=== PATIENT | male | born 1965 | race Caucasian/White ===

== ENCOUNTER → 2020-07-11 | Outpatient (CLI) | payer OTHER ==
[2020-07-11 10:59] LABS: ALBUMIN 3.9 GM/DL (3.2-5.2); ALT/SGPT 41 U/L (12-78); BILIRUBIN,TOTAL 0.5 MG/DL (0.2-1.0); BLOOD UREA NITROGEN 16 MG/DL (7-18); CALCIUM LEVEL 8.7 MG/DL (8.5-10.1); CARBON DIOXIDE LEVEL 28 MEQ/L (21-32); CHLORIDE LEVEL 104 MEQ/L (98-107); CHOLESTEROL LEVEL 254 MG/DL (<200); CHOLESTEROL RISK RATIO 6.864 (<5); FREE T4 0.92 NG/DL (0.76-1.46); GLOMERULAR FILTRATION RATE > 60.0 (>56); GLUCOSE, FASTING 102 MG/DL (70-100); HDL CHOLESTEROL 37 MG/DL (>40); NON-HDL-C 217 MG/DL; POTASSIUM SERUM 4.4 MEQ/L (3.5-5.1); SODIUM LEVEL 136 MEQ/L (136-145); TOTAL PROTEIN 6.7 GM/DL (6.4-8.2); TRIGLYCERIDES LEVEL 472 MG/DL (<150)
== END ==
LOC: M LAB 08:55
PROVIDERS: ATTEND Physician Assistant Medical
DX: E78.2 Mixed hyperlipidemia (principal)

== ENCOUNTER → 2020-09-05 | Outpatient (CLI) | payer OTHER ==
[~2020-09-05] MED LIST: ATOR1TAB21 PO; FLUT11IN INH; LOSA100T5 PO; OMEP-221 PO; VENTAER INH
== END ==
LOC: M LABSMTC 09:54
PROVIDERS: ATTEND Anesthesiology
DX: Z20.828 Contact with and (suspected) exposure to other viral communicable diseases (principal)

== ENCOUNTER 2020-09-10 06:45 | Day surgery (SDC) | payer OTHER ==
[~2020-09-10] VITALS: Ht 177.8 cm; Wt 123.8 kg
[~2020-09-10 06:45] MED LIST changes: +NS 1,000 ML IV ONE
[2020-09-10] MEDS ORDERED: SIMETHICONE 40MG/0.6ML DROPS 30ML As Ordered ONE (06:47)
--- OUTSIDE RECORDS SUMMARY | 2020-09-10 06:50 | CCD | Continuity of Care Document ---
Author Author Barron BRIONES [place] Organization Unknown Address [address] [place] [address] Phone [phone] Care Team Providers Care English Professor Name Role Phone [facility] - Surgery AUTM [phone] Problems Description No Information Available Social History Type Date Description Comments Sex Unknown Smokeless Tobacco 01/2020 vapes 100 hits per d ay ETOH Use Occasionally consumes alcohol Tobacco Use Start: Unknown Patient is a current smoker, smo kes some days smokes when drinking, 1 to 2 x per week, was a 1ppd smoker for 20-25 years, quit 01/2020 Recreational Drug Use Former Drug User cocaine a nd marijuana Smoking Status Reviewed: 07/23/20 Patient is a current smoker, smokes some days smokes when drinking, 1 to 2 x per week, was a 1ppd smoker for 20-25 years, quit 01/2020 Exercise Type/Frequency Exercises sporadically Tattoo/Piercing Tattoo Sun Exposure Minimum amount of sun exposure Sun Exposure Has experienced blistering from sunburns Sun Exposure History of sunburn Sun Exposure Does not use sunscreen avoids chavez n, sits in shade and limits exposure to sun Seat Belt/Car Seat Always uses seat belt Bike Helmet Always Smoke Alarms Yes Smoke Alarms Carbon Monoxide Detector: Yes Allergies, Adverse Reactions, Alerts Active Allergies Reaction Severity Comments Date NKDA 07/09/2020 Bee Sting Difficulty breathing, Difficulty swallowing, Fac ial swelling, Hives 07/09/2020 Medications Active Medications SIG Qnty Indications Ordering Provide r Date Losartan Potassium/Hydrochlorothiazide 100-25mg Tablets take one tablet by mouth every morning for blood pressure 30 tabs I10 Lety Olivera M.D. 07/23/2020 Atorvastatin Calcium 20mg Tablets 1 tab by mouth every day for cholesterol 90tabs E78.2 Lety Olivera M.D. 07/23/2020 Flovent HFA 110mcg/Act Aerosol inhalation one puff twice a day, rinse mouth after use 24gm R06.2 Will Lety hawkins M.D. 07/09/[address] 1 by mouth every day 90caps Lety Olivera M.D. 020 Albuterol Sulfate HFA 108(90Base) mcg/Act Aerosol inhale 1 puff 30 minutes prior to exerci se may repeat every 4 to 6 hours as needed 17units R06.2 Lety Olivera M.D. 020 Sleep Aid 25mg Capsules 1 po at bedtime Unknown Immunizations Description No Information Available Vital Signs Date Vital Result Comment 07/23/2020 2:41pm BP Systolic 203 mmHg BP Diastolic 121 mmHg BP Systolic Recheck 200 mmHg BP Diastolic Recheck 109 mmHg Heart Rate 110 /min Body Temperature 97.2 F Respiratory Rate 17 /min Height 69.0 inches 5'9" Weight 275.38 lb O2 % BldC Oximetry 93 % Peak Expiratory Flow Rate 521 Estimated Peak Flow Rate [place] Body Weight 160 lb BMI (Body Mass Index) 40.7 kg/m2 07/09/2020 9:42am BP Systolic 161 mmHg BP Diastolic 106 mmHg BP Systolic Recheck 157 mmHg BP Diastolic Recheck 102 mmHg Heart Rate 84 /min Body Temperature 97.6 F Respiratory Rate 17 /min Height 69.0 inches 5'9" Weight 271.38 lb O2 % BldC Oximetry 98 % Peak Expiratory Flow Rate 521 Estimated Peak Flow Rate [place] Body Weight 160 lb BMI (Body Mass Index) 40.1 kg/m2 Results Test Acquired Date Facility Test Result H/L Range Note Lipid Panel 07/11/2020 [facility] nter [phone] Triglycerides Level 472 mg/dL High <150 Cholesterol Level 254 mg/dL High <200 HDL Cholesterol 37 mg/dL Low >40 Non-HDL-C 217 mg/dL Normal Cholesterol Risk Ratio 6.864 High <5 Comprehensive Metabolic Profil 07/11/2020 [facility] [phone] Glucose, Fasting 102 mg/dL High 70-100 Blood Urea Nitrogen 16 mg/dL Normal 7-18 Creatinine For GFR 0.90 mg/dL Normal 0.70-1.30 Glomerular Filtration Rate > 60.0 Normal >56 1 Sodium Level 136 mEq/L Normal 136-145 Potassium Serum 4.4 mEq/L Normal 3.5-5.1 Chloride Level 104 mEq/L Normal 98-107 Carbon Dioxide Level 28 mEq/L Normal 21-32 Anion Gap 4 mEq/L Low 8-16 Calcium Level 8.7 mg/dL Normal 8.5-10.1 Ast/Sgot 20 U/L Normal 7-37 Alt/SGPT 41 U/L Normal 12-78 Alkaline Phosphatase 77 U/L Normal 45-117 Bilirubin,Total 0.5 mg/dL Normal 0.2-1.0 Total Protein 6.7 GM/DL Normal 6.4-8.2 Albumin 3.9 GM/DL Normal 3.2-5.2 Albumin/Globulin Ratio 1.4 Normal FT4&TSH Panel 07/11/2020 [facility] nter [phone] Thyroid Stimulating Hormone 1.740 uIU/ML Normal 0. 358-3.740 Free T4 0.92 ng/dL Normal 0.76-1.46 1 Units are mL/min/1.73 m2 Chronic Kidney Disease Staging per NKF: Stage I & II GFR >=60 Normal to Mildly Decreased Stage III GFR 30-59 Moderately Decreased Stage IV GFR 15-29 Severely Decreased Stage V GFR <15 Very Little GFR Left ESRD GFR <15 on [employer] Procedures Date Code Description Status 07/09/2020 61963 Brief Emotional/Beha v Assessment W/ Scoring Doc Per Standard [facility] Completed Medical Devices Description No Information Available Encounters Type Date Location Provider Dx Diagnosis Office Visit 07/23/2020 2:30p Main Office Krissy Briones PA I10 Essential (primary) hypertension E78.2 Mixed hyperlipidemia E66.09 Other obesity due to excess calories F17.210 Nicotine dependence, cigaret severiano, uncomplicated R06.00 Dyspnea, unspecified Z68.41 Body mass index [BMI]40.0-44 .9, adult Office Visit 07/09/2020 9:45a Main Office Krissy Briones PA E78.2 Mixed hyperlipidemia M25.511 Pain in right shoulder K21.9 Gastro-esophageal reflux dis ease without esophagitis R03.0 Elevated blood-pressure read ing, w/o diagnosis of htn R06.2 Wheezing E66.09 Other obesity due to excess calories F17.210 Nicotine dependence, cigaret severiano, uncomplicated Z13.89 Encounter for screening for other disorder Z68.41 Body mass index [BMI]40.0-44 .9, adult Assessments Date Code Description Provider 07/23/2020 I10 Essential hypertension Petrancos ta Krissy [place], PA 07/23/2020 E78.2 Mixed hyperlipidemia Petrancosta , Krissy [place], PA 07/23/2020 E66.09 Other obesity due to excess jason nadege Petrancosta, Krissy [place], PA 07/23/2020 F17.210 Nicotine dependence, cigarettes, uncomplicated Petrancosta, Krissy [place], PA 07/23/2020 R06.00 Dyspnea, unspecified Petrancosta , Krissy [place], PA 07/23/2020 Z68.41 Body mass index [BMI]40.0-44.9, adult Petrancosta Krissy [place], PA 07/09/2020 E78.2 Mixed hyperlipidemia Petrancosta , Krissy [place], PA 07/09/2020 M25.511 Pain in right shoulder Petrancos ta Krissy [place], PA 07/09/2020 K21.9 Gastro-esophageal reflux disease without esophagitis Petrjaradosta, Krissy [place], PA 07/09/2020 R03.0 Elevated blood-press ure reading, without diagnosis of hypertension Jamesancosta, Krissy [place], PA 07/09/2020 R06.2 Wheezing Petrancosta, Sta felicita [place], PA 07/09/2020 E66.09 Other obesity due to excess jason nadege Petrancosta, Krissy [place], PA 07/09/2020 F17.210 Nicotine dependence, cigarettes, uncomplicated Petrancosta, Krissy [place], PA 07/09/2020 Z13.89 Encounter for screening for othe r disorder Joaquim Krissy [place], PA 07/09/2020 Z68.41 Body mass index [BMI]40.0-44.9, adult Krissy Briones PA Plan of Treatment Future Appointment(s):* 09/03/2020 9:00 am - Krissy Briones PA at Main Office 07/23/2020 - Krissy Briones PA* I10 Essential hypertension* New Medication:* Losartan Potassium/Hydrochlorothiazide 100-25 mg - take one tablet by mouth every morning for blood pressure * Comments:* manual BP checked 180/100start losartan/HCTZlong discussion re: weight loss, exercise, smoking cessation * Follow up:* 1 month * E78.2 Mixed hyperlipidemia* New Medication:* Atorvastatin Calcium 20 mg - 1 tab by mouth every day for cholesterol * Comments:* labs reviewed, triglycerides very high likely secondary to alcohol intakestart lipitor * E66.09 Other obesity due to excess calories * F17.210 Nicotine dependence, cigarettes, uncomplicated * R06.00 Dyspnea, unspecified* Comments:* COPD vs. asthma vs deconditioningcontinue flovent, consider PFTs and sleep study at next visit * Z68.41 Body mass index [BMI]40.0-44.9, adult Functional Status Functional Condition Comment Date Status Glasses readers Active Independent with all ADL's Activ e Independent with all IADL's Acti ve Mental Status Mental Condition Comment Date Status None Active Referrals Refer to Reason for Referral Status Appt Date [facility] SCREENING COLONOSCOPY [place] 07/17/[address] [place] [address], [address] [address] [phone]
--- OUTSIDE RECORDS SUMMARY | 2020-09-10 06:50 | CCD | Continuity of Care Document ---
Author Author Barron BRIONES [place] Organization Unknown Address [address] [place] [address] Phone [phone] Care Team Providers Care Examination Proctor Name Role Phone [facility] - Surgery AUTM [phone] Problems Description No Information Available Social History [...] cocaine a nd marijuana Smoking Status Reviewed: 07/09/20 Patient is a current smoker, smokes some [...] SIG Qnty Indications Ordering Provide r Date Flovent HFA 110mcg/Act Aerosol inhalation one puff [...] Available Vital Signs Date Vital Result Comment 07/09/2020 9:42am BP Systolic 161 mmHg BP Diastolic 106 mmHg BP Systolic Recheck 157 mmHg BP Diastolic Recheck 102 mmHg Heart Rate 84 /min Body Temperature 97.6 F Respiratory Rate 17 /min Height 69.0 inches 5'9" Weight 271.38 lb O2 % BldC Oximetry 98 % Peak Expiratory Flow Rate 521 Estimated Peak Flow Rate [place] Body Weight 160 lb BMI (Body Mass Index) 40.1 kg/m2 Results Test Acquired Date Facility Test Result H/L Range Note Lipid Panel 07/11/2020 [facility] nter [phone] Triglycerides Level 472 mg/dL High <150 Cholesterol Level 254 mg/dL High <200 HDL Cholesterol 37 mg/dL Low >40 Non-HDL-C 217 mg/dL Normal Cholesterol Risk Ratio 6.864 High <5 Comprehensive Metabolic Profil 07/11/2020 [facility] [phone] Glucose, Fasting 102 mg/dL High 70-100 Blood [...] Albumin/Globulin Ratio 1.4 Normal FT4&TSH Panel 07/11/2020 [facility] nter [phone] Thyroid Stimulating Hormone 1.740 uIU/ML Normal 0. 358-3.740 Free T4 0.92 ng/dL Normal 0.76-1.46 1 Units are mL/min/1.73 m2 Chronic Kidney Disease Staging per NKF: Stage I & II GFR >=60 Normal to Mildly Decreased Stage III GFR 30-59 Moderately Decreased Stage IV GFR 15-29 Severely Decreased Stage V GFR <15 Very Little GFR Left ESRD GFR <15 on [employer] Procedures Date Code Description Status 07/09/2020 12688 Brief Emotional/Beha v Assessment W/ Scoring Doc Per Standard Inst Completed Medical Devices Description No Information Available Encounters Type Date Location Provider Dx Diagnosis Office Visit 07/09/2020 9:45a Main Office Krissy [...] .9, adult Assessments Date Code Description Provider 07/09/2020 E78.2 Mixed hyperlipidemia Krissy Briones PA 07/09/2020 M25.511 Pain in right shoulder Petrancos Krissy de leon PA 07/09/2020 K21.9 Gastro-esophageal reflux disease without esophagitis Krissy Briones PA 07/09/2020 R03.0 Elevated blood-press ure reading, without diagnosis of hypertension Krissy Briones PA 07/09/2020 R06.2 Wheezing Anamaria Briones cia PA 07/09/2020 E66.09 Other obesity due to excess jason nadege Krissy Briones PA 07/09/2020 F17.210 Nicotine dependence, cigarettes, uncomplicated BenyostaKrissy PA 07/09/2020 Z13.89 Encounter for screening for othe r disorder Krissy Briones PA 07/09/2020 Z68.41 Body mass index [BMI]40.0-44.9, adult Krissy Briones PA Plan of Treatment Future Appointment(s):* 07/23/2020 2:30 pm - Krissy Briones PA at Main Office Functional Status Functional Condition Comment Date Status Glasses readers Active Independent with all ADL's Activ e Independent with all IADL's Acti ve Mental Status Mental Condition Comment Date Status None Active Referrals Refer to Reason for Referral Status Appt Date [facility] SCREENING COLONOSCOPY [place] 07/17/[address] [place] [address], [address] [address] [phone]
--- OUTSIDE RECORDS SUMMARY | 2020-09-10 06:50 | CCD | Continuity of Care Document ---
Author Author Barron BRIONES PA Organization Unknown Address [address] [place] [address] Phone [phone] Care Team Providers Care Hotel Breakfast Attendant Name Role Phone [facility] - Surgery AUTM [phone] Problems Description No Information Available Social History [...] cocaine a nd marijuana Smoking Status Reviewed: 09/03/20 Patient is a current smoker, smokes some [...] SIG Qnty Indications Ordering Provide r Date Hydrocodone-Acetaminophen 5-325mg Tablets 1 tab by mouth every 4 hours as needed for pain 30tabs M54.5 Lety Olivera M.D. 09/03/2020 Losartan Potassium/Hydrochlorothiazide 100-25mg Tablets Take 1 Tablet By Mouth Every Morning For Blood Pressure 30tabs I10 Lety Olivera M.D. 07/23/2020 Atorvastatin Calcium [...] to 6 hours as needed 17units R06.2 Krissy Briones PA 09/2019 Sleep Aid 25mg Capsules 1 po at bedtime Unknown Immunizations Description No Information Available Vital Signs Date Vital Result Comment 09/03/2020 9:07am BP Systolic 142 mmHg BP Diastolic 98 mmHg BP Systolic Recheck 135 mmHg recheck BP Diastolic Recheck 91 mmHg recheck Heart Rate 98 /min Body Temperature 97.7 F Respiratory Rate 18 /min Height 69.0 inches 5'9" Weight 271.00 lb O2 % BldC Oximetry 97 % Peak Expiratory Flow Rate 521 Estimated Peak Flow Rate [place] Body Weight 160 lb BMI (Body Mass Index) 40.0 kg/m2 07/23/2020 2:41pm BP Systolic 203 mmHg BP Diastolic 121 mmHg BP Systolic Recheck 200 mmHg BP Diastolic Recheck 109 mmHg Heart Rate 110 /min Body Temperature 97.2 F Respiratory Rate 17 /min Height 69.0 inches 5'9" Weight 275.38 lb O2 % BldC Oximetry 93 % Peak Expiratory Flow Rate 521 Estimated Peak Flow Rate [place] Body Weight 160 lb BMI (Body Mass Index) 40.7 kg/m2 Results Test Acquired Date Facility Test Result H/L Range Note Lipid Panel 07/11/2020 [facility] nter [phone] Triglycerides Level 472 mg/dL High <150 Cholesterol Level 254 mg/dL High <200 HDL Cholesterol 37 mg/dL Low >40 Non-HDL-C 217 mg/dL Normal Cholesterol Risk Ratio 6.864 High <5 Comprehensive Metabolic Profil 07/11/2020 [facility] [phone] Glucose, Fasting 102 mg/dL High 70-100 Blood [...] Albumin/Globulin Ratio 1.4 Normal FT4&TSH Panel 07/11/2020 [facility] nter [phone] Thyroid Stimulating Hormone 1.740 uIU/ML Normal 0. 358-3.740 Free T4 0.92 ng/dL Normal 0.76-1.46 1 Units are mL/min/1.73 m2 Chronic Kidney Disease Staging per NKF: Stage I & II GFR >=60 Normal to Mildly Decreased Stage III GFR 30-59 Moderately Decreased Stage IV GFR 15-29 Severely Decreased Stage V GFR <15 Very Little GFR Left ESRD GFR <15 on [employer] Procedures Date Code Description Status 07/09/2020 32552 Brief Emotional/Beha v Assessment W/ Scoring Doc Per Standard Inst Completed Medical Devices Description No Information Available Encounters Type Date Location Provider Dx Diagnosis Office Visit 09/03/2020 9:00a Main Office Krissy Briones PA I10 Essential (primary) hypertension E78.2 Mixed hyperlipidemia M54.5 Low back pain Office Visit 07/23/2020 2:30p Main Office Krissy Briones PA I10 Essential (primary) hypertension E78.2 Mixed hyperlipidemia E66.09 Other obesity due to excess calories F17.210 Nicotine dependence, cigaret severiano, uncomplicated R06.00 Dyspnea, unspecified Z68.41 Body mass index [BMI]40.0-44 .9, adult Office Visit 07/09/2020 9:45a Main Office PetrjaradostKrissy carey, PA E78.2 Mixed hyperlipidemia M25.511 Pain in right shoulder K21.9 Gastro-esophageal reflux dis ease without esophagitis R03.0 Elevated blood-pressure read ing, w/o diagnosis of htn R06.2 Wheezing E66.09 Other obesity due to excess calories F17.210 Nicotine dependence, cigaret severiano, uncomplicated Z13.89 Encounter for screening for other disorder Z68.41 Body mass index [BMI]40.0-44 .9, adult Assessments Date Code Description Provider 09/03/2020 I10 Essential hypertension Petrancos ta, Krissy [place], PA 09/03/2020 E78.2 Mixed hyperlipidemia Petrancosta , Krissy [place], PA 09/03/2020 M54.5 Low back pain Petrancosta Sta felicita [place], PA 07/23/2020 I10 Essential hypertension Petrancos ta, Krissy [place], PA 07/23/2020 E78.2 Mixed hyperlipidemia Petrancosta , Krissy [place], PA 07/23/2020 E66.09 Other obesity due to excess jason nadege Petrancosta, Krissy [place], PA 07/23/2020 F17.210 Nicotine dependence, cigarettes, uncomplicated Petrancosta, Krissy [place], PA 07/23/2020 R06.00 Dyspnea, unspecified Petrancosta , Krissy [place], PA 07/23/2020 Z68.41 Body mass index [BMI]40.0-44.9, adult Petrancosta, Krissy [place], PA 07/09/2020 E78.2 Mixed hyperlipidemia Petrancosta , Krissy [place], PA 07/09/2020 M25.511 Pain in right shoulder Petrancos ta, Krissy [place], PA 07/09/2020 K21.9 Gastro-esophageal reflux disease without esophagitis Petrancosta, Krissy [place], PA 07/09/2020 R03.0 Elevated blood-press ure reading, without diagnosis of hypertension Petrancosta, Krissy [place], PA 07/09/2020 R06.2 Wheezing Anamaria Briones cia, PA 07/09/2020 E66.09 Other obesity due to excess jason nadege Krissy Briones PA 07/09/2020 F17.210 Nicotine dependence, cigarettes, uncomplicated Krissy Briones PA 07/09/2020 Z13.89 Encounter for screening for othe r disorder Krissy Briones PA 07/09/2020 Z68.41 Body mass index [BMI]40.0-44.9, adult Krissy Briones PA Plan of Treatment Future Appointment(s):* 11/05/2020 8:45 am - Krissy Briones PA at Main Office Functional Status Functional Condition Comment Date Status Glasses readers Active Independent with all ADL's Activ e Independent with all IADL's Acti ve Mental Status Mental Condition Comment Date Status None Active Referrals Refer to Reason for Referral Status Appt Date [facility] SCREENING COLONOSCOPY Closed 07/17/2020 [address] [facility], [address] [place] [address] [phone]
--- OUTSIDE RECORDS SUMMARY | 2020-09-10 06:50 | CCD | Continuity of Care Document ---
Author Author Barron BRIONES [place] Organization Unknown Address [address] [place] [address] Phone [phone] Care Team Providers Care General Accounting Manager Name Role Phone [facility] - Surgery AUTM [phone] Problems Description No Information Available Social History [...] Flow Rate 521 Estimated Peak Flow Rate [place] Body Weight 160 lb BMI (Body Mass Index) 40.1 kg/m2 Procedures Date Code Description Status 07/09/2020 53789 Brief Emotional/Beha v Assessment W/ Scoring Doc Per Standard Inst Completed Medical Devices Description No Information Available Encounters Type Date Location Provider Dx Diagnosis Office Visit 07/09/2020 9:45a Main Office Krissy Brioens PA E78.2 Mixed hyperlipidemia M25.511 Pain in [...] PA 07/09/2020 M25.511 Pain in right shoulder Jamesancos Krissy de leon PA 07/09/2020 K21.9 Gastro-esophageal reflux disease without esophagitis Krissy Briones PA 07/09/2020 R03.0 Elevated blood-press ure reading, without diagnosis of hypertension Krissy Briones PA 07/09/2020 R06.2 Wheezing Anamaria Briones cia, [...] to Reason for Referral Status Appt Date [facility] SCREENING COLONOSCOPY [place] 07/17/[address] [place] [address], [address] [address] [phone]
--- OUTSIDE RECORDS SUMMARY | 2020-09-10 06:50 | CCD | Continuity of Care Document ---
Author Author Barron [facility] Organization Unknown Address [address] [place] [address], [address] [place] [address] Phone [phone] Care Team Providers Care Ripening Room Operator Name Role Phone Krissy March AUTM [phone] Problems Active Problems Provider Date Essential hypertension Jose Lane NP Onset: 07/17/2020 Social History Type Date Description Comments Sex Unknown ETOH Use 6 A Week Recreational Drug Use Denies Drug Use Tobacco Use Start: 08/08/94 Patient is a current smoker, smo kes every day 1 PPD Allergies, Adverse Reactions, Alerts Active Allergies Reaction Severity Comments Date Bee Sting SWELLING, HIVES 07/17/2020 Medications Active Medications SIG Qnty Indications Ordering Provide r Date Flovent Diskus 100mcg/Blist Aeroso l 1 puff twice a day Unknown Omeprazole 40mg Capsules DR 1 by mouth every day Unknown Ventolin HFA 108(90Base) mcg/Act A erosol 1 inhalation qd Unknown Immunizations Description No Information Available Vital Signs Date Vital Result Comment 07/17/2020 11:10am BP Systolic 196 mmHg BP Diastolic 112 mmHg Height 70 inches 5'10" Weight 273.25 lb BMI (Body Mass Index) 39.2 kg/m2 [place] Body Weight 166 lb Weight 123.946 kg BSA (Body Surface Area) 2.38 m2 Results Description No Information Available Procedures Description No Information Available Medical Devices Description No Information Available Encounters Description No Information Available Assessments Description No Information Available Plan of Treatment No Information Available Functional Status Description No Information Available Mental Status Description No Information Available Referrals Refer to Reason for Referral Status Appt Date Cecil Nash D.O. COLONOSCOPY Scheduled 07/17/[address] [place] [address] [phone]
--- OUTSIDE RECORDS SUMMARY | 2020-09-10 06:50 | CCD | Continuity of Care Document ---
Author Author Barron BRIONES SC Organization Unknown Address [address] [place] [address] Phone [phone] Care Team Providers Care Facilities Coordinator Name Role Phone [facility] - Surgery AUTM [phone] Problems Description No Information Available Social History [...] Flow Rate 521 Estimated Peak Flow Rate [place] Body Weight 160 lb BMI (Body Mass [...] Flow Rate 521 Estimated Peak Flow Rate [place] Body Weight 160 lb BMI (Body Mass Index) 40.1 kg/m2 Results Test Acquired Date Facility Test Result H/L Range Note Lipid Panel 07/11/2020 [facility] nter [phone] Triglycerides Level 472 mg/dL High <150 Cholesterol Level 254 mg/dL High <200 HDL Cholesterol 37 mg/dL Low >40 Non-HDL-C 217 mg/dL Normal Cholesterol Risk Ratio 6.864 High <5 Comprehensive Metabolic Profil 07/11/2020 [facility] [phone] Glucose, Fasting 102 mg/dL High 70-100 Blood [...] Albumin/Globulin Ratio 1.4 Normal FT4&TSH Panel 07/11/2020 [facility] nter [phone] Thyroid Stimulating Hormone 1.740 uIU/ML Normal 0. 358-3.740 Free T4 0.92 ng/dL Normal 0.76-1.46 1 Units are mL/min/1.73 m2 Chronic Kidney Disease Staging per NKF: Stage I & II GFR >=60 Normal to Mildly Decreased Stage III GFR 30-59 Moderately Decreased Stage IV GFR 15-29 Severely Decreased Stage V GFR <15 Very Little GFR Left ESRD GFR <15 on QUILL LAYER Procedures Date Code Description Status 07/09/2020 86026 Brief Emotional/Beha v Assessment W/ Scoring Doc Per Standard [facility] Completed Medical Devices Description No [...] Code Description Provider 07/23/2020 I10 Essential hypertension Krissy Montejo PA 07/23/2020 E78.2 Mixed hyperlipidemia Krissy Briones PA 07/23/2020 E66.09 Other obesity due to excess jason nadege Krissy Briones PA 07/23/2020 F17.210 Nicotine dependence, cigarettes, uncomplicated Krissy Briones PA 07/23/2020 R06.00 Dyspnea, unspecified Krissy Briones PA 07/23/2020 Z68.41 Body mass index [BMI]40.0-44.9, adult Krissy Briones PA 07/09/2020 E78.2 Mixed hyperlipidemia Krissy Briones PA 07/09/2020 M25.511 Pain in right shoulder Krissy Montejo PA 07/09/2020 K21.9 Gastro-esophageal reflux disease without [...] adult Krissy Briones PA Plan of Treatment 07/23/2020 - Krissy Briones PA* I10 Essential hypertension* New Medication:* Losartan Potassium/Hydrochlorothiazide 100-25 mg - take one tablet by mouth every morning for blood pressure * Follow up:* 1 month * E78.2 Mixed hyperlipidemia* New Medication:* Atorvastatin Calcium 20 mg - 1 tab by mouth every day for cholesterol * E66.09 Other obesity due to excess calories * F17.210 Nicotine dependence, cigarettes, uncomplicated * R06.00 Dyspnea, unspecified * Z68.41 Body mass index [BMI]40.0-44.9, adult Functional Status Functional Condition Comment Date Status Glasses readers Active Independent with all ADL's Activ e Independent with all IADL's Acti ve Mental Status Mental Condition Comment Date Status None Active Referrals Refer to Reason for Referral Status Appt Date [facility] SCREENING COLONOSCOPY [place] 07/17/[address] [place] [address], [address] [place] [phone]
--- OUTSIDE RECORDS SUMMARY | 2020-09-10 06:50 | CCD ---
Author Author [facility] Organization [facility] Address Unknown Phone Unavailable Care Team Providers Care Fullerette Name Role Phone Joaquim Lafourche Krissy PA-C Unavailable Unavailabl e Petrancosta, Lafourche Krissy PA-C Unavailable Unavailabl e Petrancosta, Lafourche Krissy PA-C Unavailable Unavailabl e Petrancosta, Lafourche Krissy PA-C Unavailable Unavailabl e Petrancosta, Lafourche Krissy PA-C Unavailable Unavailabl e Petrancosta, Lafourche Krissy PA-C Unavailable Unavailabl e Petrancosta, Lafourche Krissy PA-C Unavailable Unavailabl e Petrancosta, Lafourche Krissy PA-C Unavailable Unavailabl e Petrancosta, Lafourche Krissy PA-C Unavailable Unavailabl e Petrancosta, Lafourche Krissy PA-C Unavailable Unavailabl e Petrancosta, Lafourche Krissy PA-C Unavailable Unavailabl e Petrancosta, Lafourche Krissy PA-C Unavailable Unavailabl e Petrancosta, Lafourche Krissy PA-C Unavailable Unavailabl e Petrancosta, Lafourche Krissy PA-C Unavailable Unavailabl e Petrancosta, Lafourche Krissy PA-C Unavailable Unavailabl e Petrancosta, Lafourche Krissy PA-C Unavailable Unavailabl e Petrancosta, Lafourche Krissy PA-C Unavailable Unavailabl e Petrancosta, Lafourche Krissy PA-C Unavailable Unavailabl e Petrancosta, Lafourche Krissy PA-C Unavailable Unavailabl e Petrancosta, Sid Krissy PA-C Unavailable Unavailabl e Petrancosta, Sid Krissy PA-C Unavailable Unavailabl e Petrancosta, Sid Krissy PA-C Unavailable Unavailabl e Petrancosta, Sid Krissy PA-C Unavailable Unavailabl e Mendez, Tianna SUPERVISOR BROADLOOM Unavailable Unavailable Mendez, Tianna SUPERVISOR BROADLOOM Unavailable Unavailable Mendez, Tianna SUPERVISOR BROADLOOM Unavailable Unavailable Mendez, Tianna SUPERVISOR BROADLOOM Unavailable Unavailable Mendez, Tianna SUPERVISOR BROADLOOM Unavailable Unavailable Mendez, Tianna SUPERVISOR BROADLOOM Unavailable Unavailable Mendez, Tianna SUPERVISOR BROADLOOM Unavailable Unavailable Mendez, Tianna SUPERVISOR BROADLOOM Unavailable Unavailable Mendez, Tianna SUPERVISOR BROADLOOM Unavailable Unavailable Mendez, Tianna SUPERVISOR BROADLOOM Unavailable Unavailable Mendez, Tianna SUPERVISOR BROADLOOM Unavailable Unavailable Re-disclosure Warning The records that you are about to access may contain information from federally-assisted alcohol or drug abuse programs. If such information is present, then the following federally mandated warning applies: This information has been disclosed to you from records protected by federal confidentiality rules (42 CFR part 2). The federal rules prohibit you from making any further disclosure of this information unless further disclosure is expressly permitted by the written consent of the person to whom it pertains or as otherwise permitted by 42 CFR part 2. A general authorization for the release of medical or other information is NOT sufficient for this purpose. The Federal rules restrict any use of the information to criminally investigate or prosecute any alcohol or drug abuse patient.The records that you are about to access may contain highly sensitive health information, the redisclosure of which is protected by Article 27-F of the [facility] Public Health law. If you continue you may have access to information: Regarding HIV / AIDS; Provided by facilities licensed or operated by the [facility] Office of Mental Health; or Provided by the [facility] Office for People With Developmental Disabilities. If such information is present, then the following [facility] mandated warning applies: This information has been disclosed to you from confidential records which are protected by state law. State law prohibits you from making any further disclosure of this information without the specific written consent of the person to whom it pertains, or as otherwise permitted by law. Any unauthorized further disclosure in violation of state law may result in a fine or nursing home sentence or both. A general authorization for the release of medical or other information is NOT sufficient authorization for further disc losure. Family History Family Member Name Family Member Gender Family Member Status Date o f Status Description Data Source(s) Unknown Unknown Problem [facility] ([facility], [facility]) Encounters Encounter Providers Location Date Indications Data Source(s ) Outpatient Attender: Krissy March PA-C Main Office 09/03/2020 08:00:00 AM EST [facility] ([facility] Outpatient Attender: Krissy March PA-C Main Office 07/23/2020 01:30:00 PM EST [facility] ([facility] Outpatient Attender: Krissy March PA-C Main Office 07/09/2020 08:45:00 AM EST [facility] ([facility] Outpatient Attender: Tianna kim 01/19/2020 10:00:00 AM EDT [facility] ([facility] [place] [facility]) Medications Medication Brand Name Start Date Product Form Dose Route Admi nistrative Instructions Pharmacy Instructions Status Indications Reaction Description Data Source(s) Acetaminophen 325 MG / Hydrocodone Bitartrate 5 MG Ora l Tablet Hydrocodone-Acetaminophen 09/03/2020 12:00:00 AM EST ORAL active [facility] ([facility] atorvastatin 20 MG Oral Tablet Atorvastatin Calcium 07/23/2020 1 2:00:00 AM EST ORAL active [facility] ( [facility] Hydrochlorothiazide 25 MG / Losartan Potassium 100 MG Oral Tablet Losartan Potassium/Hydrochlorothiazide 07/23/2020 12:00:00 AM EST active [facility] ([facility] 120 ACTUAT Fluticasone propionate 0.11 MG/ACTUAT Meter ed Dose Inhaler [Flovent] Flovent HFA 07/09/2020 12:00:00 AM EST RESPIRATORY activ e [facility] ([facility] Omeprazole 40 MG Delayed Release Oral Capsule Omeprazole 07/09/2020 12:00:00 AM EST ORAL active [facility] ([facility] 60 ACTUAT Albuterol 0.09 MG/ACTUAT Metered Dose Inhaler Albu terol Sulfate HFA 07/09/2020 12:00:00 AM EST RESPIRATORY active [facility] ([facility] Nystatin 643550 UNT/ML Oral Suspension Nystatin 01/19/2020 12:00:00 AM EDT ORAL active [facility] ([facility]) Amoxicillin 875 MG / Clavulanate 125 MG Oral Tablet Am oxicillin/Clavulanate Potassium 01/19/2020 12:00:00 AM EDT ORAL active [facility] ([facility]) Ibuprofen 800 MG Oral Tablet Ibuprofen 01/19/2020 12:00:00 AM EDT ORAL active [facility] ([facility]) 875-125 mg 01/19/2020 12:00:00 AM EDT tablet 20 TAKE ONE TABLET BY MOUTH TWICE A DAY FOR 10 DAYS TAKE ONE TABLET BY MOUTH TWICE A DAY FOR 10 DAYS SOLD: 01/19/2020 [facility] 100,000 unit/mL 01/19/2020 12:00:00 AM EDT suspension [address] 1ML EACH SIDE OF MOUTH 4 TIMES A DAY USE [id number] AFTER SYMPTOMS RESOLVE PLACE 1ML EACH SIDE OF MOUTH 4 TIMES A DAY USE [id number] AFTER SYMPTOMS RESOLVE SOLD: 01/19/2020 [facility] Insurance Providers Payer name Policy type / Coverage type Policy ID Covered constitution party ID Covered constitution party's relationship to ramirez Policy Ramirez Plan Information [employer] [id number] SP [id number] [employer] [id number] SP [id number] [facility] [id number] SP [id number] [facility] O [id number] S [id number] [facility] ALLSAV O [id number] S [id number] [facility] ALLSAV O [id number] S [id number] [facility] [place] O [id number] S [id number] [employer] [id number] SP [id number] [facility] [place] [id number] SP [id number] Problems, Conditions, and Diagnoses Code Display Name Description Problem Type Effective Dates Data Source(s) 86648547 Essential hypertension Essential hypertension Problem 07/17/2020 12:00:00 AM EST [facility] ([facility], ) Surgeries/Procedures Procedure Description Date Indications Data Source(s) Brief Emotional/Behav Assessment W/ Scoring Doc Per Standard Inst 07/09/2020 12:00:00 AM EST [facility] ([facility] Results ID Date Data Source [id number] 09/05/2020 10:00:00 AM EST [facility] Name Value Range Interpretation Code Description Data Chen rce(s) Supporting Document(s) SARS coronavirus 2 RNA Not Detected [facility] [place] This lab was ordered by [facility] and reported by [facility]. ID Date Data Source [id number] 07/17/2020 12:00:00 AM EST [facility] Krissy March Rpa, C Patient Name:LIZET [id number] Date of : 1965[place] [address] Date of Exam: 07/17/2020#: Fax: [phone] EXAM: CHEST (2 VIEW) X-RAYCLINICAL INFORMATION: Dyspnea.Two views.Comparison 03/29/2014.The superior mediastinal structures are midline. The heart is notenlarged. The diaphragmatic surfaces of the lungs are regular and thecostophrenic angles are clear. The pulmonary reed are clear. Thevisualized osseous structures are intact.There are mild degenerative changes of the spine.IMPRESSION:There is no acute cardiopulmonary disease.PRIYANKA Levy/Arturo salinas for referring DENAE AMBROCIO to our office. Electronically Signed - ASA ALEXANDER MD 07/17/20 16:45 Name Value Range Interpretation Code Description Data Chen rce(s) Supporting Document(s) ID Date Data Source [id number] 07/11/2020 09:17:00 AM EST [facility] ([facility] Name Value Range Interpretation Code Description Data Chen rce(s) Supporting Document(s) Thyroid Stimulating Hormone 1.740 uIU/ML 0.358-3.740 [facility] ([facility] Free T4 0.92 ng/dL 0.76-1.46 [facility] ([facility] ID Date Data Source [id number] 07/11/2020 09:17:00 AM EST [facility] ([facility] Name Value Range Interpretation Code Description Data Chen rce(s) Supporting Document(s) Glucose, Fasting 102 mg/dL 70-100 [facility] ([facility] Blood Urea Nitrogen 16 mg/dL 7-18 [facility] ([facility] Creatinine For GFR 0.90 mg/dL 0.70-1.30 [facility] ([facility] Glomerular Filtration Rate Laboratory test result [facility] ([facility] <content>Units are mL/min/1.73 m2</content>
<content></content>
<content>Chronic Kidney Disease Staging per NKF:</content>
<content></content>
<content>Stage I & II GFR >=60 Normal to Mildly Decreased</content>
<content>Stage III GFR 30- 59 Moderately Decreased</content>
<content>Stage IV GFR 15-29 Severely Decreased</content>
<content>Stage V GFR <15 Very Little GFR Left</content>
<content>ESRD GFR <15 on EXTRUDING DEPARTMENT SUPERVISOR</content>
<content></content> Sodium Level 136 meq/L 136-145 [facility] ([facility] Potassium Serum 4.4 meq/L 3.5-5.1 [facility] ([facility] Chloride Level 104 meq/L 98-107 [facility] ([facility] Calcium Level 8.7 mg/dL 8.5-10.1 [facility] ([facility] Carbon Dioxide Level 28 meq/L 21-32 [facility] ([facility] Anion Gap 4 meq/L 8-16 [facility] ([facility] Alt/SGPT 41 U/L 12-78 [facility] Ast/Sgot 20 U/L 7-37 [facility] ([facility] Bilirubin,Total 0.5 mg/dL 0.2-1.0 [facility] ([facility] Alkaline Phosphatase 77 U/L 45-117 [facility] ([facility] Albumin 3.9 GM/DL 3.2-5.2 [facility] ([facility] Total Protein 6.7 GM/DL 6.4-8.2 [facility] ([facility] Albumin/Globulin Ratio 1.4 [facility] ([facility] ID Date Data Source [id number] 07/11/2020 09:17:00 AM EST [facility] ([facility] Name Value Range Interpretation Code Description Data Chen rce(s) Supporting Document(s) Triglycerides Level 472 mg/dL [facility] ([facility] HDL Cholesterol 37 mg/dL [facility] ([facility] Cholesterol Level 254 mg/dL [facility] ([facility] Non-HDL-C 217 mg/dL [facility] ([facility] Cholesterol Risk Ratio 6.864 [facility] ([facility] Procedure Vital Signs ID Date Data Source UNK Name Value Range Interpretation Code Description Data Source(s) Body mass index (BMI) [Ratio] 40.0 kg/m2 40.0 k g/m2 [facility] ([facility] [place] body weight 160 [lb_av] 160 [lb_av] [facility] T ([facility] Oxygen saturation in Arterial blood by Pulse oximetry 97 % 97 % [facility] ([facility] Body weight 271.00 [lb_av] 271.00 [lb_av] [facility] T ([facility] Body height 69.0 [in_i] 69.0 [in_i] [facility] ([facility] 5'9" Respiratory rate 18 /min 18 /min [facility] ( [facility] Body temperature 97.7 [degF] 97.7 [degF] [facility] ([facility] Heart rate 98 /min 98 /min [facility] ([facility] Diastolic blood pressure 91 mm[Hg] 91 mm[Hg] [facility] ([facility] recheck Systolic blood pressure 135 mm[Hg] 135 mm[Hg] M EDENT ([facility] recheck Diastolic blood pressure 98 mm[Hg] 98 mm[Hg] [facility] ([facility] Systolic blood pressure 142 mm[Hg] 142 mm[Hg] M [facility] ([facility] Body mass index (BMI) [Ratio] 40.7 kg/m2 40.7 k g/m2 [facility] ([facility] [place] body weight 160 [lb_av] 160 [lb_av] [facility] T ([facility] Oxygen saturation in Arterial blood by Pulse oximetry 93 % 93 % [facility] ([facility] Body weight 275.38 [lb_av] 275.38 [lb_av] [facility] T ([facility] Body height 69.0 [in_i] 69.0 [in_i] [facility] ([facility] 5'9" Respiratory rate 17 /min 17 /min [facility] ( [facility] Body temperature 97.2 [degF] 97.2 [degF] [facility] ([facility] Heart rate 110 /min 110 /min [facility] ([facility] Diastolic blood pressure 109 mm[Hg] 109 mm[Hg] [facility] ([facility] Systolic blood pressure 200 mm[Hg] 200 mm[Hg] M [facility]ENT ([facility] Diastolic blood pressure 121 mm[Hg] 121 mm[Hg] [facility] Systolic blood pressure 203 mm[Hg] 203 mm[Hg] M EDENT ([facility] Body surface area Derived from formula 2.38 m2 2.38 m2 [facility] ([facility]) Body weight 123.946 kg 123.946 kg [facility] ([facility]) [place] body weight 166 [lb_av] 166 [lb_av] MED[facility] T ([facility]) Body mass index (BMI) [Ratio] 39.2 kg/m2 39.2 k g/m2 [facility] ([facility]) Body weight 273.25 [lb_av] 273.25 [lb_av] MED[facility] T ([facility]) Body height 70 [in_i] 70 [in_i] [facility] ([facility]) 5'10" Diastolic blood pressure 112 mm[Hg] 112 mm[Hg] [facility] ([facility]) Systolic blood pressure 196 mm[Hg] 196 mm[Hg] M EDENT ([facility]) Body weight 271.38 [lb_av] 271.38 [lb_av] [facility] T ([facility] Body height 69.0 [in_i] 69.0 [in_i] [facility] ([facility] 5'9" Respiratory rate 17 /min 17 /min [facility] ( [facility] Body temperature 97.6 [degF] 97.6 [degF] [facility] ([facility] Heart rate 84 /min 84 /min [facility] ([facility] Diastolic blood pressure 102 mm[Hg] 102 mm[Hg] [facility] ([facility] Systolic blood pressure 157 mm[Hg] 157 mm[Hg] M [facility] ([facility] Diastolic blood pressure 106 mm[Hg] 106 mm[Hg] [facility] ([facility] Systolic blood pressure 161 mm[Hg] 161 mm[Hg] M [facility]ENT ([facility] Body mass index (BMI) [Ratio] 40.1 kg/m2 40.1 k g/m2 [facility] ([facility] [place] body weight 160 [lb_av] 160 [lb_av] MED[facility] T ([facility] Oxygen saturation in Arterial blood by Pulse oximetry 98 % 98 % [facility] ([facility] Body mass index (BMI) [Ratio] 33.0 kg/m2 33.0 k g/m2 [facility] ([facility]) Body height 70 [in_i] 70 [in_i] [facility] ([facility]) 5'10" Body weight 230.00 [lb_av] 230.00 [lb_av] MEDEN T ([facility], [facility]) Body temperature 97.0 [degF] 97.0 [degF] [facility] ([facility]) Oxygen saturation in Arterial blood by Pulse oximetry 97 % 97 % [facility] ([facility], [facility]) Respiratory rate 17 /min 17 /min [facility]) Heart rate 72 /min 72 /min [facility] ([facility]) Diastolic blood pressure 110 mm[Hg] 110 mm[Hg] [facility] Systolic blood pressure 160 mm[Hg] 160 mm[Hg] [facility] ([facility], [facility])
[2020-09-10] MEDS ORDERED: propofoL 200 MG/20 ML VIAL As Ordered ONE ×2 (07:12→07:41)
[2020-09-10] MEDS ORDERED: LIDOCAINE 2% 100MG/5ML SDV (FOR ANES.) As Ordered ONE (07:12)
--- NOTE | 2020-09-10 07:58 | ROOR ---
Patient Name: Barron Guerrero Procedure Date: 09/10/2020 7:30 AM Date of : 1965 Age: 54 Room: [facility] Gender: Male Note Status: Finalized Procedure: Colonoscopy Indications: Screening for colorectal malignant neoplasm Providers: DO Natacha Caba MD: Lety Olivera MD Requesting Provider: Medicines: Propofol per Anesthesia Complications: No immediate complications. Procedure: Pre-Anesthesia Assessment: - Prior to the procedure, a History and Physical was performed, and patient medications and allergies were reviewed. The patient is competent. The risks and benefits of the procedure and the sedation options and risks were discussed with the patient. All questions were answered and informed consent was obtained. Patient identification and proposed procedure were verified by the physician, the nurse, the anesthesiologist and the it service technician in the endoscopy suite. Mental Status Examination: alert and oriented. Airway Examination: normal oropharyngeal airway and neck mobility. Respiratory Examination: clear to auscultation. CV Examination: normal. Prophylactic Antibiotics: The patient does not require prophylactic antibiotics. Prior Anticoagulants: The patient has taken no previous anticoagulant or antiplatelet agents. ASA Grade Assessment: II - A patient with mild systemic disease. After reviewing the risks and benefits, the patient was deemed in satisfactory condition to undergo the procedure. The anesthesia plan was to use monitored anesthesia care (MAC). Immediately prior to administration of medications, the patient was re-assessed for adequacy to receive sedatives. The heart rate, respiratory rate, oxygen saturations, blood pressure, adequacy of pulmonary ventilation, and response to care were monitored throughout the procedure. The physical status of the patient was re-assessed after the procedure. The Colonoscope was introduced through the anus and advanced to the cecum, identified by appendiceal orifice and ileocecal valve. The colonoscopy was performed without difficulty. The patient tolerated the procedure well. Findings: Multiple small-mouthed diverticula were found in the sigmoid colon and descending colon. Impression: - Diverticulosis in the sigmoid colon and in the descending colon. - No specimens collected. Recommendation: - Patient has a contact number available for emergencies. The signs and symptoms of potential delayed complications were discussed with the patient. Return to normal activities tomorrow. Written discharge instructions were provided to the patient. - Repeat colonoscopy in 5-10 years for screening purposes. - Return to my office PRN. Procedure Code(s): --- Professional --- G0121, Colorectal cancer screening; colonoscopy on individual not meeting criteria for high risk Diagnosis Code(s): --- Professional --- Z12.11, Encounter for screening for malignant neoplasm of colon K57.30, Diverticulosis of large intestine without perforation or abscess without bleeding CPT copyright 2019 [employer]. All rights reserved. The codes documented in this report are preliminary and upon biogeographer review may be revised to meet current compliance requirements. Cecil Nash DO 09/10/2020 7:58:27 AM Electronically signed by Cecil Nash DO Number of Addenda: 0 Note Initiated On: 09/10/2020 7:30 AM Estimated Blood Loss: Estimated blood loss: none.
[2020-09-10 08:15] VITALS: BP 119/81
== END 2020-09-10 08:30 | disposition home or self-care (01) ==
LOC: M OPP 06:45
PROVIDERS: ATTEND Surgery
DX: Z12.11 Encounter for screening for malignant neoplasm of colon (principal); K57.30 Diverticulosis of large intestine without perforation or abscess without bleeding; J45.909 Unspecified asthma, uncomplicated; E78.5 Hyperlipidemia, unspecified; R12 Heartburn; F17.200 Nicotine dependence, unspecified, uncomplicated; Z79.899 Other long term (current) drug therapy

== ENCOUNTER → 2020-11-13 | Outpatient (CLI) | payer OTHER ==
[~2020-11-13] MED LIST changes: -NS 1,000 ML IV ONE
[2020-11-13 09:45] LABS: ALBUMIN 4.2 GM/DL (3.2-5.2); ALT/SGPT 61 U/L (12-78); BILIRUBIN,TOTAL 0.5 MG/DL (0.2-1.0); BLOOD UREA NITROGEN 24 MG/DL (7-18); CALCIUM LEVEL 9.2 MG/DL (8.5-10.1); CARBON DIOXIDE LEVEL 28 MEQ/L (21-32); CHLORIDE LEVEL 103 MEQ/L (98-107); CHOLESTEROL LEVEL 173 MG/DL (<200); CHOLESTEROL RISK RATIO 5.406 (<5); CREATININE FOR GFR 0.91 MG/DL (0.70-1.30); GLOMERULAR FILTRATION RATE > 60.0 (>56); GLUCOSE, FASTING 108 MG/DL (70-100); HDL CHOLESTEROL 32 MG/DL (>40); LDL CHOLESTEROL 85 MG/DL (<100); NON-HDL-C 141 MG/DL; POTASSIUM SERUM 3.9 MEQ/L (3.5-5.1); SODIUM LEVEL 138 MEQ/L (136-145); TOTAL PROTEIN 7.1 GM/DL (6.4-8.2); TRIGLYCERIDES LEVEL 281 MG/DL (<150)
== END ==
LOC: M LAB 08:35
PROVIDERS: ATTEND Physician Assistant Medical
DX: E78.2 Mixed hyperlipidemia (principal)

== ENCOUNTER → 2021-03-10 | Outpatient (CLI) | payer OTHER ==
[~2021-03-10] MED LIST changes: -OMEP-221 PO; +OMEP40CA5 PO
== END ==
LOC: M RAD 07:41
PROVIDERS: ATTEND Family Medicine
DX: R05 Cough (principal)

== ENCOUNTER → 2022-08-30 | Outpatient (CLI) | payer OTHER | LOC: M WUC 14:54 | PROVIDERS: ATTEND Student in an Organized Health Care Education/Training Program | DX: R06.02 Shortness of breath (principal) ==

== ENCOUNTER → 2025-04-05 | Outpatient (CLI) | payer OTHER ==
[~2025-04-05] MED LIST changes: -FLUT11IN INH; +FLUT12AE6 INH
== END ==
LOC: M WUC 15:52
PROVIDERS: ATTEND Nurse Practitioner Family
DX: M79.672 Pain in left foot (principal)